=== PATIENT | female | born 1945 | race Caucasian/White ===

== ENCOUNTER 2020-04-07 11:31 | Emergency (ER) | payer MEDICARE, OTHER ==
--- NOTE | 2020-04-07 12:55 | EDM.PDOC ---
ED HPI GENERAL MEDICAL PROBLEM - General Stated Complaint: FELL, RT SHOULDER PAIN Time Seen by Provider: 04/07/20 11:50 Source of Information: Reports: Patient, Family History Limitations: Reports: No Limitations - History of Present Illness INITIAL COMMENTS - FREE TEXT/NARRATIVE: Pt. presents to ER with complaints of R shoulder and head pain post fall. Pt. states that she tripped last night and fell, landing on her R shoulder and striking her R temporal area on the floor. There was no LOC. She remembers the whole event. There was no LOC. Pt. denies any discomfort to her lower extremities. No numbness/tingling in extremities. Denies any chest pain or shortness of breath. She has been alert and oriented since the event. Daughter states that she had an unsteady gait last night after striking her head, but he had consumed some alcohol before. Today, gait and mentation are back to baseline. Onset: Today Onset Date: 04/07/20 Location: Reports: Head, Upper Extremity, Right Associated Symptoms: Denies: Confusion, Chest Pain, Cough, cough w sputum, Diaphoresis, Fever/Chills, Headaches, Loss of Appetite, Malaise, Nausea/Vomiting, Rash, Seizure, Shortness of Breath, Syncope, Weakness Right Upper Anterior Shoulder Pain Score (Numeric/FACES): 2 - Related Data Allergies Allergy/AdvReac Type Severity Reaction Status Date / Time morphine Allergy Other Verified 04/07/20 12:11 Penicillins Allergy Rash Verified 04/07/20 12:09 Irfgikk-Vvy-Rvq Reductase Allergy Other Verified 04/07/20 12:11 Inhibitor Home Meds: Home Meds ALPRAZolam [Xanax] 04/07/20 [History] Calcium Carbonate [Calcium] 04/07/20 [History] Cholecalciferol (Vitamin D3) [Vitamin D] 04/07/20 [History] Gabapentin [Neurontin] 04/07/20 [History] Hydrocodone/Acetaminophen [Hydrocodone-Acetamin 5-325 mg] 04/07/20 [History] Meloxicam 04/07/20 [History] Omeprazole 04/07/20 [History] Primidone [Mysoline] 04/07/20 [History] Triamterene/Hydrochlorothiazid [Triamterene-HCTZ 75-50 MG] 04/07/20 [History] Venlafaxine [Effexor XR] 04/07/20 [History] Vit A/Vit C/Vit E/Zinc/Copper [Preservision] 1 tab PO DAILY 04/07/20 [History] Vitamin E 1 tab PO DAILY 04/07/20 [History] buPROPion [Wellbutrin SR] 04/07/20 [History] ED ROS GENERAL - Review of Systems Review Of Systems: See Below Constitutional: Reports: No Symptoms HEENT: Reports: No Symptoms Respiratory: Reports: No Symptoms Cardiovascular: Reports: No Symptoms Endocrine: Reports: No Symptoms GI/Abdominal: Reports: No Symptoms : Reports: No Symptoms Musculoskeletal: Reports: Shoulder Pain Skin: Reports: No Symptoms Neurological: Reports: No Symptoms, Other (See HPI. No current neuro symptoms.) Psychiatric: Reports: No Symptoms Hematologic/Lymphatic: Reports: No Symptoms Immunologic: Reports: No Symptoms ED EXAM, GENERAL - Physical Exam Exam: See Below Exam Limited By: No Limitations General Appearance: Alert, WD/WN, No Apparent Distress Eye Exam: Bilateral Eye: EOMI, Normal Fundi, Normal Inspection, PERRL Throat/Mouth: Normal Inspection, Normal Lips, Normal Teeth, No Airway Compromise Head: Other (hematoma to R temporal area.) Neck: Normal Inspection, Supple, Non-Tender, Full Range of Motion Extremities: Normal Inspection, No Pedal Edema, Normal Capillary Refill, Limited Range of Motion, Other (Pain with movement of R shoulder area. No crepitus or obvious deformity. Area of pain appears to be at R distal clavicle.) Neurological: Alert, Oriented, CN II-XII Intact, Normal Cognition, Normal Gait, Normal Reflexes, No Motor/Sensory Deficits Psychiatric: Normal Affect, Normal Mood Skin Exam: Warm, Dry, Intact, Normal Color, No Rash Course - Vital Signs Last Recorded V/S: Last Vital Signs Temp 36.3 C 04/07/20 12:51 Pulse 96 04/07/20 12:51 Resp 16 04/07/20 12:51 BP 126/67 04/07/20 12:51 Pulse Ox 96 04/07/20 12:51 - Radiology Interpretation Free Text/Narrative:: CT brain negative. Departure - Departure Time of Disposition: 13:06 Disposition: Home, Self-Care 01 Clinical Impression: Closed right clavicular fracture - Discharge Information Instructions: Clavicle Fracture, [id number] Referrals: PCP,Not In Area [Primary Care Provider] - Forms: ED Department Discharge Additional Instructions: Use sling. Other than fracture of the end of the collarbone, there was no other abnormality noted on the x-rays. Head CT was negative for injury. Continue with current pain medications. Follow-up with PCP or ortho in 2 weeks. They will most likely repeat the x-rays to make sure things are healing. Sepsis Event Note (ED) - Focused Exam Vital Signs: Vital Signs Temp Pulse Resp BP Pulse Ox 04/07/20 12:51 36.3 C 96 16 126/67 96 - Problem List Review Problem List Initiated/Reviewed/Updated: Yes - Assessment/Plan Plan: Pt. was placed in sling and swathe. Advised to keep on until she is seen by per PCP back in [place] in several weeks. She has pain medication at home. She is not in a lot of discomfort if she is not moving the R upper extremity. Follow-up in clinic in 2 weeks. Return to ER if confusion, vomiting, headache, or other worrisome signs/symptoms.
--- NOTE | 2020-04-07 12:55 | CT ---
[id number] CT/CT Head WO IV EXAM: CT Head WO IV CLINICAL DATA: TRAUMA COMPARISON: NO PREVIOUS SIMILAR EXAM IS AVAILABLE FOR COMPARISON. FINDINGS: There is no mass or mass effect. There is no hemorrhage or hydrocephalus. There are no extra-axial fluid collections. There are no sites of abnormal attenuation. IMPRESSION: NO PLAIN CT EVIDENCE OF ACUTE INTRACRANIAL PROCESS. Duke Sharma MD 04/07/20 [id number] Thank you for allowing us to participate in the care of your patient.
--- NOTE | 2020-04-07 12:58 | CR ---
[id number] RAD/RAD Shoulder Right 2V Min EXAM: RAD Shoulder Right 2V Min CLINICAL DATA: TRAUMA COMPARISON: NO PREVIOUS SIMILAR EXAM IS AVAILABLE. FINDINGS: A minimally diastatic distal right clavicular fracture is seen, age indeterminate There are mild degenerative changes. IMPRESSION: DISTAL RIGHT CLAVICULAR FRACTURE CORRELATION WITH PHYSICAL EXAM NEEDED Duke Sharma MD 04/07/20 1257 Thank you for allowing us to participate in the care of your patient.
== END 2020-04-07 13:34 | disposition home or self-care (01) ==
LOC: VM.ED 11:31
DX: S42.031 Displaced fracture of lateral end of right clavicle (principal); S00.83XA Contusion of other part of head, initial encounter; Z88.5 Allergy status to narcotic agent; Z88.0 Allergy status to penicillin; Z88.8 Allergy status to other drugs, medicaments and biological substances; W01.198A Fall on same level from slipping, tripping and stumbling with subsequent striking against other object, initial encounter
CPT/HCPCS: 70450; 73030-RT; 99283; 99284-25

== ENCOUNTER 2021-02-04 18:04 | Emergency (ER) | payer OTHER, MEDICARE ==
--- NOTE | 2021-02-04 20:15 | EDM.PDOC ---
ED HPI GENERAL MEDICAL PROBLEM - General Chief Complaint: Head Injury Stated Complaint: FALL AND LACERATION ON FOREHEAD Time Seen by Provider: 02/04/21 19:50 Source of Information: Reports: Patient, Family History Limitations: Reports: No Limitations - History of Present Illness INITIAL COMMENTS - FREE TEXT/NARRATIVE: Patient states approximately about 3:00 today she was out on the sidewalk going for a walk with her dogs tied the dog's leash to the walker and while bending down the walker and was pulled out from under her she fell and hit her head on the concrete per the daughter it was about maybe a foot from her head to the concrete. She had a small 3 mm laceration to the left side of her forehead her daughter who is a nurse for 32 years try to get her to come in earlier secondary to it would not stop bleeding but she would not. She presented here tonight secondary to the wound had not stop bleeding until about hour ago. Per the daughter her neuro has all been intact per the patient she has had no headache no nausea no vomiting no unsteadiness no lightheadedness or dizziness and she feels fine she is a snack plus supper tonight with no issues. She has no other complaints at this time Duration: Hour(s): Location: Reports: Head Improves with: Reports: None, Other (No pain at this time) Worsens with: Reports: None Associated Symptoms: Reports: No Other Symptoms - Related Data Allergies Allergy/AdvReac Type Severity Reaction Status Date / Time morphine Allergy Other Verified 04/07/20 12:11 Penicillins Allergy Rash Verified 04/07/20 12:09 [id number] Reductase Allergy Other Verified 04/07/20 12:11 Inhibitor [Dqxkxon-Hou-Ktp Reductase Inhibitor] Home Meds: Home Meds ALPRAZolam [Xanax] 04/07/20 [History] Calcium Carbonate [Calcium] 04/07/20 [History] Cholecalciferol (Vitamin D3) [Vitamin D] 04/07/20 [History] Gabapentin [Neurontin] 04/07/20 [History] Hydrocodone/Acetaminophen [Hydrocodone-Acetamin 5-325 mg] 04/07/20 [History] Meloxicam 04/07/20 [History] Omeprazole 04/07/20 [History] Primidone [Mysoline] 04/07/20 [History] Triamterene/Hydrochlorothiazid [Triamterene-HCTZ 75-50 MG] 04/07/20 [History] Venlafaxine [Effexor XR] 04/07/20 [History] Vit A/Vit C/Vit E/Zinc/Copper [Preservision] 1 tab PO DAILY 04/07/20 [History] Vitamin E 1 tab PO DAILY 04/07/20 [History] buPROPion [Wellbutrin SR] 04/07/20 [History] Past Medical History Cardiovascular History: Reports: DE Respiratory History: Reports: None Gastrointestinal History: Reports: GERD Genitourinary History: Reports: None Musculoskeletal History: Reports: Osteoporosis Neurological History: Reports: None Endocrine/Metabolic History: Reports: Osteoporosis Dermatologic History: Reports: None - Past Surgical History HEENT Surgical History: Reports: Cataract Surgery Musculoskeletal Surgical History: Reports: Joint Replacement Social & Family History - Caffeine Use Caffeine Use: Reports: Coffee ED ROS GENERAL - Review of Systems Review Of Systems: See Below Constitutional: Reports: No Symptoms HEENT: Reports: No Symptoms Respiratory: Reports: No Symptoms Cardiovascular: Reports: No Symptoms Endocrine: Reports: No Symptoms GI/Abdominal: Reports: No Symptoms : Reports: No Symptoms Musculoskeletal: Reports: No Symptoms Skin: Reports: No Symptoms Neurological: Reports: No Symptoms. Denies: Confusion, Dizziness, Headache, Numbness, Pre-Existing Deficit, Seizure, Syncope, Tingling, Difficulty Walking, Weakness, Gait Disturbance Psychiatric: Reports: No Symptoms Hematologic/Lymphatic: Denies: Easy Bleeding Immunologic: Reports: No Symptoms (She does not take any blood thinners) ED EXAM, HEAD INJURY - Physical Exam Exam: See Below Exam Limited By: No Limitations General Appearance: Alert, WD/WN, No Apparent Distress, Other (GCS of 15 patient is talkative has a normal gait with her cane very friendly) Head: Atraumatic, Normocephalic, Other (To the left forehead there is approximately a 3 mm x 3 mm superficial linear laceration there is no surrounding edema or ecchymosis or crepitus noted there is no tenderness to palpation over the sinuses or the orbits) Nexus Criteria: No: Posterior, Midline Cervical Tenderness, Altered Level of Consciousness, Focal Neurological Deficit, Painful Distraction Injuries Eyes: Bilateral Eye: Normal Fundi, Normal Inspection, PERRL Ears: Normal External Exam, Normal Canal, Hearing Grossly Normal, Normal TMs. No: TM Blood Nose: Normal Inspection, Normal Mucousa, No Blood Throat/Mouth: Normal Inspection, Normal Lips, Normal Teeth, Normal Gums, Normal Oropharynx, Normal Voice, No Airway Compromise Neck: Non-Tender, Full Range of Motion, Normal Alignment, Normal Inspection Respiratory: No Respiratory Distress, Lungs Clear, Normal Breath Sounds, No Accessory Muscle Use, Chest Non-Tender Cardiovascular: Normal Peripheral Pulses, Regular Rate, Rhythm, No Edema, No Gallop, No JVD, No Murmur, No Rub GI/Abdominal Exam: Normal Bowel Sounds, Soft, Non-Tender, No Organomegaly, No Distention Back Exam: Normal Inspection, Full Range of Motion Extremities: Normal Inspection, Normal Range of Motion, Non-Tender, No Pedal Edema, Normal Capillary Refill Neurologic: supply requirements officer II-XII nml As Tested, No Motor/Sensory Deficits, Alert, Normal Mood/Affect (She has equal hunter guide bilateral 5 of 5 strength bilateral no pronator sway noted), Oriented x 3 Skin: Normal Color, Warm/Dry - Bright Coma Score [place] Total: 15 Course - Vital Signs Text/Narrative:: Laceration was cleaned with warm soapy water and Hibiclens glued back together with Dermabond well approximated Head injury instructions were given to the patient and the daughter with verbal understanding signs symptoms need to return Departure - Departure Time of Disposition: 20:20 Disposition: Home, Self-Care 01 Condition: Good Clinical Impression: Head injury, Laceration of head - Discharge Information *PRESCRIPTION DRUG MONITORING PROGRAM REVIEWED*: No *COPY OF PRESCRIPTION DRUG MONITORING REPORT IN PATIENT DILMA: No Referrals: Deepali Plasencia RN [Primary Care Provider] - Forms: ED Department Discharge - Problem List & Annotations (1) Head injury SNOMED Code(s): 28441759 Code(s): S09.90XA - UNSPECIFIED INJURY OF HEAD, INITIAL ENCOUNTER Status: Acute (2) Laceration of head SNOMED Code(s): 776775670 Code(s): S01.91XA - LACERATION W/O FOREIGN BODY OF UNSP PART OF HEAD, INIT Status: Acute
== END 2021-02-04 20:20 | disposition home or self-care (01) ==
LOC: VM.ED 18:04
DX: S01.81XA Laceration without foreign body of other part of head, initial encounter (principal); K21.9 Gastro-esophageal reflux disease without esophagitis; I25.2 Old myocardial infarction; Z79.899 Other long term (current) drug therapy; Z88.0 Allergy status to penicillin; Z88.5 Allergy status to narcotic agent; Z88.8 Allergy status to other drugs, medicaments and biological substances; W18.09XA Striking against other object with subsequent fall, initial encounter
CPT/HCPCS: 12011; 12013; 99283; 99283-25